=== PATIENT | male | born 1935 | race Caucasian/White ===

== ENCOUNTER 2020-06-02 06:50 | Outpatient (NON) | payer MEDICARE, SELFPAY ==
[2020-06-02 21:05] LABS: SARS-CoV-2 RNA PCR Negative
== END 2020-06-02 06:51 ==
LOC: ANHCOVIDDT 06:54
PROVIDERS: PCP Internal Medicine; Visit Provider Nurse Practitioner Family
DX: Z20.828 Contact with and (suspected) exposure to other viral communicable diseases (principal)
CPT/HCPCS: 87635; C9803; U0003